=== PATIENT | female | born 1970 | race Caucasian/White ===

== ENCOUNTER → 2017-07-23 | Outpatient (CLI) | payer OTHER ==
[2017-07-23 07:54] LABS: BASOPHIL % 0.4 % (0-2); PLATELET COUNT 248 x10^3mcL (130-400)
[2017-07-23 07:55] LABS: RED CELL DISTRIBUTION WIDTH 15.6 % (11.5-14.5)
[2017-07-23 08:25] LABS: ALKALINE PHOSPHATASE 91 U/L (46-116); ALT/SGPT 34 U/L (14-59); AST/SGOT 16 U/L (15-37); BILIRUBIN TOTAL 0.4 mg/dL (0.20-1.00); CALCIUM 8.7 mg/dL (8.5-10.1); CARBON DIOXIDE 31.2 mmol/L (21-32); CHLORIDE SERUM 102 mmol/L (98-107); CHOLESTEROL 142 mg/dL (<200); CHOLESTEROL/HDL RATIO 3.2; CREATININE SERUM 0.7 mg/dL (0.6-1.0); GFR1 > 60 mL/min; GLUCOSE SERUM 116 mg/dL (74-106); HDL CHOLESTEROL 44 mg/dL (40-60); POTASSIUM SERUM 4.1 mmol/L (3.5-5.1); SODIUM SERUM 140 mmol/L (136-145); TOTAL PROTEIN, SERUM 6.9 g/dL (6.4-8.2)
[2017-07-23 08:31] LABS: T3 TOTAL 1.11 ng/mL
[2017-07-23 08:33] LABS: FREE T4 1.12 ng/dL (0.76-1.46); FREE THYROXINE INDEX 2.9 ug/dL (1.4-4.5); T4(THYROXINE) 8.4 ug/dL (4.7-13.3)
[2017-07-23 08:43] LABS: ALBUMIN 3.1 g/dL (3.4-5.0); TRIGLYCERIDES 222 mg/dL (<150)
[2017-07-24 06:29] LABS: VITAMIN D 25-HYDROXY 21.7 ng/mL (30.0-100.0)
== END | disposition home or self-care (01) ==
LOC: LB 07:23
PROVIDERS: Student in an Organized Health Care Education/Training Program
DX: Z00.00 Encounter for general adult medical examination without abnormal findings (principal); I10 Essential (primary) hypertension
CPT/HCPCS: 84439

== ENCOUNTER → 2019-01-12 | Outpatient (CLI) | payer OTHER ==
[2019-01-12 10:04] LABS: BASOPHIL % 0.5 % (0-2); PLATELET COUNT 273 x10^3mcL (130-400)
[2019-01-12 10:05] LABS: RED CELL DISTRIBUTION WIDTH 16.6 % (11.5-14.5)
[2019-01-12 10:44] LABS: SODIUM SERUM 140 mmol/L (136-145)
[2019-01-12 10:45] LABS: ALBUMIN 3.4 g/dL (3.4-5.0); ALKALINE PHOSPHATASE 95 U/L (46-116); ALT/SGPT 25 U/L (14-59); AST/SGOT 10 U/L (15-37); BILIRUBIN TOTAL 0.35 mg/dL (0.20-1.00); CALCIUM 9.3 mg/dL (8.5-10.1); CARBON DIOXIDE 28.9 mmol/L (21-32); CHLORIDE SERUM 101 mmol/L (98-107); CHOLESTEROL 176 mg/dL (<200); CHOLESTEROL/HDL RATIO 3.5; CREATININE SERUM 0.7 mg/dL (0.6-1.0); GFR1 > 60 mL/min; GLUCOSE SERUM 130 mg/dL (74-106); HDL CHOLESTEROL 50 mg/dL (40-60); POTASSIUM SERUM 4.1 mmol/L (3.5-5.1); TOTAL PROTEIN, SERUM 7.7 g/dL (6.4-8.2); TRIGLYCERIDES 141 mg/dL (<150)
== END | disposition home or self-care (01) ==
LOC: LB 09:31
DX: I10 Essential (primary) hypertension (principal); E11.8 Type 2 diabetes mellitus with unspecified complications; E78.5 Hyperlipidemia, unspecified

== ENCOUNTER → 2019-03-19 | Outpatient (CLI) | payer OTHER | END | disposition home or self-care (01) | LOC: LB 11:19 | DX: N39.0 Urinary tract infection, site not specified (principal) ==

== ENCOUNTER → 2019-05-14 | Outpatient (CLI) | payer OTHER ==
[2019-05-14 08:36] LABS: ALKALINE PHOSPHATASE 103 U/L (46-116); ALT/SGPT 25 U/L (14-59); AST/SGOT 15 U/L (15-37); BILIRUBIN TOTAL 0.39 mg/dL (0.20-1.00); CARBON DIOXIDE 32.2 mmol/L (21-32); CHLORIDE SERUM 103 mmol/L (98-107); CREATININE SERUM 0.8 mg/dL (0.6-1.0); GFR1 > 60 mL/min; GLUCOSE SERUM 147 mg/dL (74-106); HDL CHOLESTEROL 42 mg/dL (40-60); POTASSIUM SERUM 4.1 mmol/L (3.5-5.1); SODIUM SERUM 142 mmol/L (136-145); TOTAL PROTEIN, SERUM 7.1 g/dL (6.4-8.2); TRIGLYCERIDES 148 mg/dL (<150)
[2019-05-14 08:39] LABS: ALBUMIN 3.2 g/dL (3.4-5.0); CHOLESTEROL 119 mg/dL (<200); CHOLESTEROL/HDL RATIO 2.8
[2019-05-14 08:53] LABS: BASOPHIL % 0.3 % (0-2); PLATELET COUNT 229 x10^3mcL (130-400)
[2019-05-14 08:57] LABS: RED CELL DISTRIBUTION WIDTH 16.6 % (11.5-14.5)
[2019-05-14 13:59] LABS: rbc morphology (normal/abnorm) ABNORMAL (NORMAL)
[2019-05-15 08:06] LABS: microalbumin:creatinine ratio 24.7 (0.0-30.0)
== END | disposition home or self-care (01) ==
LOC: LB 07:42
DX: E11.59 Type 2 diabetes mellitus with other circulatory complications (principal); E78.5 Hyperlipidemia, unspecified; E55.9 Vitamin D deficiency, unspecified; E66.1 Drug-induced obesity

== ENCOUNTER → 2019-07-05 | Outpatient (CLI) | payer OTHER ==
[2019-07-05 08:58] LABS: BASOPHIL % 0.3 % (0-2); PLATELET COUNT 208 x10^3mcL (130-400)
[2019-07-05 09:00] LABS: RED CELL DISTRIBUTION WIDTH 15.6 % (11.5-14.5)
[2019-07-05 09:10] LABS: ALKALINE PHOSPHATASE 96 U/L (46-116); ALT/SGPT 32 U/L (14-59); AST/SGOT 14 U/L (15-37); BILIRUBIN TOTAL 0.3 mg/dL (0.20-1.00); CALCIUM 8.7 mg/dL (8.5-10.1); CARBON DIOXIDE 32.4 mmol/L (21-32); CHLORIDE SERUM 100 mmol/L (98-107); CHOLESTEROL 139 mg/dL (<200); CHOLESTEROL/HDL RATIO 3.4; CREATININE SERUM 0.8 mg/dL (0.6-1.0); GFR1 > 60 mL/min; GLUCOSE SERUM 152 mg/dL (74-106); HDL CHOLESTEROL 41 mg/dL (40-60); SODIUM SERUM 141 mmol/L (136-145); TRIGLYCERIDES 169 mg/dL (<150)
[2019-07-05 09:13] LABS: ALBUMIN 3.3 g/dL (3.4-5.0)
== END | disposition home or self-care (01) ==
LOC: LB 08:30
DX: E11.59 Type 2 diabetes mellitus with other circulatory complications (principal); E78.5 Hyperlipidemia, unspecified; E55.9 Vitamin D deficiency, unspecified; E66.1 Drug-induced obesity